=== PATIENT | male | born 1960 | race Caucasian/White ===

== ENCOUNTER 2022-09-12 14:43 | Inpatient (IN) | payer OTHER ==
[~2022-09-12] VITALS: Ht 182.9 cm; Wt 113.4 kg
[2022-09-12] MEDS ORDERED: NITROGLYCERIN OINT 1GM/INCH UDPKT TD ONE (16:15)
[2022-09-12] MEDS ORDERED: FUROSEMIDE 40MG/4ML VIAL IV ONE (16:15)
[2022-09-12] MEDS ORDERED: ASPIRIN 81MG TABLET PO ONE (16:15)
[2022-09-12 16:24] LABS: BASOPHILS % 0.7 % (0.0-2.0); EOSINOPHILS % 0.8 % (0.0-5.0); HEMATOCRIT. 48.4 % (42.0-52.0); HEMOGLOBIN. 16.5 g/dL (14.0-18.0); LYMPHOCYTES % 20.3 % (20.0-50.0); MEAN CORPUSCULAR HEMOGLOBIN 32.5 pg (28.0-32.0); MEAN PLATELET VOLUME 8.8 fl (7.4-10.4); MONOCYTES % 8.8 % (2.0-8.0); NEUTROPHILS % 69.4 % (40.0-76.0); PLATELET 255 x1000/uL (130-400); RED BLOOD CELL COUNT 5.09 mill/uL (4.7-6.1); RED CELL DISTRIBUTION WIDTH 14.3 % (11.6-14.6)
[2022-09-12 16:30] LABS: CHLORIDE 106 mEq/L (98-107)
[2022-09-12 16:34] LABS: INR 1.1; PARTIAL THROMBOPLASTIN TIME 24.9 sec (23.4-31.0); PROTHROMBIN TIME 11.5 sec (9.6-11.0)
[2022-09-12] MEDS ORDERED: ENOXAPARIN 120MG/0.8ML SYR SUBCUT ONE (18:15)
[2022-09-12] MEDS ORDERED: IOHEXOL-350 100 ML BOTTLE ONE (22:17)
[2022-09-13 02:00] VITALS: BP 104/80
[2022-09-13] MEDS ORDERED: ACETAMINOPHEN 325MG TABLET PO PRN ×3 (03:15→17:15)
[2022-09-13 04:00] VITALS: BP 140/88
[2022-09-13 08:07] VITALS: BP 135/87
[2022-09-13] MEDS: FUROSEMIDE 40MG/4ML VIAL IVP SCH (09:23)
[2022-09-13] MEDS: POTASSIUM CHLORIDE 10MEQ TABLET SR PO SCH (09:23)
[2022-09-13] MEDS: HEPARIN 5000 UNITS/ML VIAL SUBCUT SCH ×2 (09:24→20:42)
[2022-09-13 11:31] LABS: BASOPHILS % 0.5 % (0.0-2.0); EOSINOPHILS % 0.6 % (0.0-5.0); HEMATOCRIT. 48.2 % (42.0-52.0); HEMOGLOBIN. 16.5 g/dL (14.0-18.0); LYMPHOCYTES % 14.7 % (20.0-50.0); MEAN CORPUSCULAR HEMOGLOBIN 32.5 pg (28.0-32.0); MEAN CORPUSCULAR VOLUME 94.7 fL (80.0-94.0); MEAN PLATELET VOLUME 8.5 fl (7.4-10.4); MONOCYTES % 9.5 % (2.0-8.0); NEUTROPHILS % 74.7 % (40.0-76.0); PLATELET 238 x1000/uL (130-400); RED BLOOD CELL COUNT 5.09 mill/uL (4.7-6.1); RED CELL DISTRIBUTION WIDTH 14.4 % (11.6-14.6)
[2022-09-13 11:54] LABS: CHLORIDE 103 mEq/L (98-107)
[2022-09-13 12:00] VITALS: BP 121/88
[2022-09-13 15:33] VITALS: BP 114/84
[2022-09-13] MEDS ORDERED: DIPHENHYDRAMINE 50MG/ML VIAL IV PRN (17:15)
[2022-09-13] MEDS ORDERED: IPRATROPIUM/ALBUTEROL 0.5-3(2.5)MG/3ML NEB HHN PRN (17:15)
[2022-09-13] MEDS ORDERED: CLONIDINE 0.1MG TABLET PO PRN (17:15)
[2022-09-13] MEDS ORDERED: MAGNESIUM/ALUMINUM HYDROXIDE/SIMETHICONE 30ML UDC PO PRN (17:15)
[2022-09-13] MEDS ORDERED: ONDANSETRON HCL 4MG/2ML INJ IV PRN (17:15)
[2022-09-13 20:00] VITALS: BP 130/85
[2022-09-13] MEDS: SODIUM CHLORIDE 0.9% INJ 3ML FLUSH IVF SCH (20:42)
[2022-09-14] VITALS: BP 120/80
[2022-09-14 04:00] VITALS: BP 129/60
[2022-09-14] MEDS: SODIUM CHLORIDE 0.9% INJ 3ML FLUSH IVF SCH ×3 (05:49→21:03)
[2022-09-14 07:52] LABS: CHLORIDE 105 mEq/L (98-107)
[2022-09-14 08:00] VITALS: BP 131/88
[2022-09-14] MEDS: FUROSEMIDE 40MG/4ML VIAL IVP SCH (09:29)
[2022-09-14] MEDS: POTASSIUM CHLORIDE 10MEQ TABLET SR PO SCH (09:29)
[2022-09-14] MEDS: HEPARIN 5000 UNITS/ML VIAL SUBCUT SCH ×2 (09:29→20:52)
[2022-09-14 12:00] VITALS: BP 125/89
[2022-09-14] MEDS ORDERED: POTASSIUM CHLORIDE 20MEQ/PACKET PO NR (15:45)
[2022-09-14 16:00] VITALS: BP 121/92
[2022-09-14 20:00] VITALS: BP 127/89
[2022-09-14] MEDS ORDERED: ATORVASTATIN CALCIUM 20MG TABLET PO SCH (21:00)
[2022-09-14] MEDS: CARVEDILOL 3.125 MG TABLET PO SCH (21:03)
[2022-09-15] VITALS: BP 120/80
[2022-09-15 04:00] VITALS: BP 140/85
[2022-09-15] MEDS: SODIUM CHLORIDE 0.9% INJ 3ML FLUSH IVF SCH (05:40)
[2022-09-15 08:00] VITALS: BP 126/66
[2022-09-15] MEDS: HEPARIN 5000 UNITS/ML VIAL SUBCUT SCH (09:00)
[2022-09-15] MEDS: CARVEDILOL 3.125 MG TABLET PO SCH (09:44)
[2022-09-15] MEDS: POTASSIUM CHLORIDE 10MEQ TABLET SR PO SCH (09:49)
[2022-09-15] MEDS: ASPIRIN 81MG EC TABLET PO SCH ×2 (09:49→09:52)
[2022-09-15] MEDS ORDERED: FUROSEMIDE 40MG TABLET PO SCH (10:30)
[2022-09-15] MEDS ORDERED: LOSARTAN POTASSIUM 25 MG TABLET PO SCH (11:00)
[2022-09-15 11:28] LABS: CHLORIDE 101 mEq/L (98-107)
[2022-09-15 11:37] LABS: HDL CHOLESTEROL 32 mg/dL (40-59); LDL CHOLESTEROL 126 mg/dL (5-100)
[2022-09-15 12:00] VITALS: BP 111/84
[2022-09-15 13:35] VITALS: BP 111/84
[2022-09-17 09:07] LABS: HBSAG SCREEN Negative (Negative)
== END 2022-09-15 14:20 | disposition home or self-care (01) | DRG 291 ==
LOC: ER 15:06 → MICUSO 18:36 → EDBEDREQ 18:38 → ENRESERV 20:07 → 8WST 09-13 01:48
PROVIDERS: ADMIT Internal Medicine; ATTEND Internal Medicine
DX: I11.0 Hypertensive heart disease with heart failure (principal); I50.23 Acute on chronic systolic (congestive) heart failure; K76.89 Other specified diseases of liver; E78.00 Pure hypercholesterolemia, unspecified; R74.01 Elevation of levels of liver transaminase levels; E78.5 Hyperlipidemia, unspecified; R77.8 Other specified abnormalities of plasma proteins; I50.9 Heart failure, unspecified
CPT/HCPCS: 36415; 71045; 71275; 76700; 80048; 80053; 80061; 83735; 83880; 84443; 84484; 85025; 85379; 86705; 86709; 86803; 87340; 93005; 93306; 99285; J1644; J1650; J1940; Q9967